=== PATIENT | male | born 1975 | race Caucasian/White ===

== ENCOUNTER 2021-07-03 15:56 | Emergency (ER) | payer BC ==
[~2021-07-03] VITALS: Ht 177.8 cm; Wt 74.8 kg
== END 2021-07-03 20:23 | disposition home or self-care (01) ==
LOC: FSED 16:12
DX: U07.1 COVID-19 (principal); R05.9 Cough, unspecified; D72.819 Decreased white blood cell count, unspecified; Z94.4 Liver transplant status; R51.9 Headache, unspecified
CPT/HCPCS: 71046; 80048; 80076; 83518; 83605; 87040; 87400; 99283; U0002

== ENCOUNTER → 2023-09-04 | Outpatient (REF) | payer BC, MEDICARE ==
[~2023-09-04] MED LIST: LIDOCAINE VISC 2% SOLN 15 ML UDC ONE
== END ==
LOC: WCC 09:00
PROVIDERS: ATTEND Nurse Practitioner Family
DX: S81.802D Unspecified open wound, left lower leg, subsequent encounter (principal); R60.1 Generalized edema

== ENCOUNTER → 2023-09-30 | Outpatient (REF) | payer BC, MEDICARE | LOC: WCC 15:55 | PROVIDERS: ATTEND Nurse Practitioner Family | DX: S81.802D Unspecified open wound, left lower leg, subsequent encounter (principal); R60.1 Generalized edema ==

== ENCOUNTER → 2023-10-02 | Outpatient (REF) | payer BC, MEDICARE ==
[~2023-10-02] MED LIST changes: +LACTATED RINGER'S 1,000 ML ONE; -LIDOCAINE VISC 2% SOLN 15 ML UDC ONE; +MINERAL OIL/PETROLAT/GLYCERI 6OZ BTL ONE
== END ==
LOC: WCC 11:11
PROVIDERS: ATTEND Nurse Practitioner Family
DX: S81.802D Unspecified open wound, left lower leg, subsequent encounter (principal); R60.1 Generalized edema
CPT/HCPCS: 99213; J7121

== ENCOUNTER → 2023-10-05 | Outpatient (REF) | payer BC, MEDICARE | LOC: WCC 11:03 | PROVIDERS: ATTEND Nurse Practitioner Family | DX: S81.802D Unspecified open wound, left lower leg, subsequent encounter (principal) ==

== ENCOUNTER → 2023-10-19 | Outpatient (REF) | payer BC, MEDICARE | LOC: WCC 11:00 | PROVIDERS: ATTEND Nurse Practitioner Family | DX: S81.802D Unspecified open wound, left lower leg, subsequent encounter (principal); R60.1 Generalized edema ==

== ENCOUNTER → 2023-10-23 | Outpatient (REF) | payer BC, MEDICARE | LOC: WCC 10:08 | PROVIDERS: ATTEND Nurse Practitioner Family | DX: S81.802D Unspecified open wound, left lower leg, subsequent encounter (principal); R60.1 Generalized edema ==

== ENCOUNTER → 2024-01-28 | Outpatient (REF) | payer BC, MEDICARE ==
[~2024-01-28] MED LIST changes: -LACTATED RINGER'S 1,000 ML ONE; +LIDOCAINE VISC 2% SOLN 15 ML UDC ONE
== END ==
LOC: WCC 09:33
PROVIDERS: ATTEND Nurse Practitioner Family
DX: S81.801A Unspecified open wound, right lower leg, initial encounter (principal); L03.115 Cellulitis of right lower limb; R60.0 Localized edema

== ENCOUNTER → 2024-02-04 | Outpatient (REF) | payer BC, MEDICARE | LOC: WCC 10:06 | PROVIDERS: ATTEND Nurse Practitioner Family | DX: S81.801A Unspecified open wound, right lower leg, initial encounter (principal); L03.115 Cellulitis of right lower limb; R60.0 Localized edema ==

== ENCOUNTER → 2024-02-09 | Outpatient (REF) | payer BC, MEDICARE ==
[~2024-02-09] MED LIST changes: +MUPIROCIN 2% OINT 22 GM TUBE ONE
== END ==
LOC: WCC 09:04
PROVIDERS: ATTEND Nurse Practitioner Family
DX: S81.801A Unspecified open wound, right lower leg, initial encounter (principal); L03.115 Cellulitis of right lower limb; R60.0 Localized edema

== ENCOUNTER → 2024-02-16 | Outpatient (REF) | payer BC, MEDICARE ==
[~2024-02-16] MED LIST changes: -LIDOCAINE VISC 2% SOLN 15 ML UDC ONE
== END ==
LOC: WCC 09:29
PROVIDERS: ATTEND Nurse Practitioner Family
DX: S81.801A Unspecified open wound, right lower leg, initial encounter (principal); R60.0 Localized edema

== ENCOUNTER → 2024-03-01 | Outpatient (REF) | payer BC, MEDICARE | LOC: WCC 14:18 | PROVIDERS: ATTEND Nurse Practitioner Family | DX: S81.801A Unspecified open wound, right lower leg, initial encounter (principal); R60.0 Localized edema ==